=== PATIENT | female | born 1980 | race African-American/Black ===

== ENCOUNTER 2021-12-21 12:27 | Outpatient (CLI) | payer OTHER ==
[2021-12-21 13:53] LABS: Erythrocyte Sedimentation Rate 17 mm/Hr (0-20)
[2021-12-21 14:04] LABS: Basophils % (Auto) 0.2 % (0.0-1.8); Eosinophils % (Auto) 0.4 % (0.0-4.3); Hematocrit 35.9 % (30.3-42.9); Hemoglobin 12.6 gm/dl (10.1-14.3); Lymphocytes # (Auto) 2.2 K/mm3 (1.2-5.4); Lymphocytes % (Auto) 23.4 % (13.4-35.0); Mean Corpuscular HGB Conc 35 % (30-34); Mean Corpuscular Volume 81 fl (79-97); Monocytes # (Auto) 0.7 K/mm3 (0.0-0.8); Monocytes % (Auto) 8.1 % (0.0-7.3); Platelet Count 301 K/mm3 (140-440); Red Blood Count 4.44 M/mm3 (3.65-5.03); Red Cell Distribution Width 13.5 % (13.2-15.2)
[2021-12-21 14:18] LABS: Free T4 (Free Thyroxine) 1.62 ng/dL (0.76-1.46)
--- NOTE | 2021-12-21 14:32 | Cat Scan Report ---
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 FINDINGS: Unenhanced and enhanced CT images of the orbits were obtained. Images are evaluated in the axial, coronal, and sagittal planes. There is no evidence of focal mass or inflammation. There is a subtle asymmetry in the size of the extraocular muscles as seen on the coronal plane. The thickness of the extraocular muscles is slightly greater on the right than on the left, including med ial, inferior, and lateral recti. There is no evidence of focal mass. The globes are unremarkable. Op tic nerves have a normal CT appearance. Retro-orbital structures are unremarkable. IMPRESSION: Subtle asymmetry in the thickness of the extraocular muscles on the right, which appear t o be slightly larger. This can be seen in association with thyroid ophthalmopathy, although pseudotum or would also be consideration. There is no evidence of focal mass outside of the normal structures. All CT scans at this location are performed using dose reduction to ALARA by means of automated expos ure control. Signer Name: Louie Stokes MD Signed: 12/21/2021 2:28 PM Workstation Name: [id number]
== END 2021-12-21 12:28 | disposition home or self-care (01) ==
LOC: CT 12:27
DX: H05.241 Constant exophthalmos, right eye (principal)
CPT/HCPCS: 36415; 70482; 84439; 84443; 85025; 85652; 86140; Q9967